=== PATIENT | female | born 2005 | race Hispanic/Latino ===

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

== ENCOUNTER 2023-04-12 08:17 | Emergency (ER) | payer OTHER, SELFPAY ==
[2023-04-12 08:30] VITALS: BP 132/80; PULSE 79; RESP 18; TEMP 36.9; O2SAT 100
--- NOTE | 2023-04-12 09:09 | ED.FEMALEGU ---
HPI - Female Genitourinary General Chief complaint: SOCIAL RESEARCH ASSISTANT Stated complaint: STD check Time Seen by Provider: 04/12/23 09:02 History of Present Illness HPI Narrative: 18-year-old female reports for evaluation for an STD check. Patient states yesterday her boyfriend was checked for STDs and has a positive for chlamydia which prompted her to come to the emergency department to be checked today. She does report abnormal vaginal discharge but denies other symptoms. She denies abdominal pain, nausea, vomiting, dysuria or hematuria, urinary frequency urgency, abnormal vaginal bleeding, labial rashes or lesions , fever. She is sexually active with 1 person. LMP approximately 3 weeks ago Related Data Allergies Allergy/AdvReac Type Severity Reaction Status Date / Time No Known Allergies Allergy Verified 04/12/23 08:34 Review of Systems Review of Systems: CONSTITUTIONAL: Denies fever, chills, or sweats. EYES: Denies visual changes, redness, or discharge. ENT: Denies rhinorrhea, congestion, sore throat, or otalgia. CARDIOVASCULAR: Denies chest pain, palpitations, or edema. RESPIRATORY: Denies cough or dyspnea. GASTROINTESTINAL: Denies abdominal pain, nausea, vomiting, or diarrhea. GENITOURINARY: See HPI SKIN: Denies rash or itching. MUSCULOSKELETAL: Denies back pain, joint pain, or myalgia. NEUROLOGIC: Denies headache, numbness, or weakness. PSYCHIATRIC: Denies anxiety or depression. [facility] Past Medical History Medical History No significant past medical history Surgical History Surgical History No significant past surgical history Family History Family History Father COVID-19 Mother , Related to kidney disease Diabetes mellitus Social History Social History Smoking status: Never smoker Tobacco type: cigarettes Second hand tobacco smoke exposure: No Alcohol intake: never Substance use: never Substance use type: does not use Living arrangements: with family Occupation/Education: student Gender identity (if verbalized by the patient): Female Exam Narrative: GENERAL: Well-appearing, well-nourished, and in no acute distress. patient resting comfortably in exam bed. She is pleasant and conversational. HEAD: Normocephalic, atraumatic. EYES: PERRLA and EOMI. ENT: Nares clear, no rhinorrhea or epistaxis. Mucous membranes moist. NECK: Supple. CHEST: Clear to auscultation. No respiratory distress. HEART: Regular rate and rhythm. No murmur heard. Normal peripheral pulses. ABDOMEN: Soft, nontender, nondistended, normal active bowel sounds. SOCIAL RESEARCH ASSISTANT: external genitalia without lesions or rashes. Vaginal vault with a moderate amount of white discharge. There is a small yellow papule to the cervix at the 11:00 location, nonfriable. Cervical os closed. No CMT, adnexal masses or tenderness. EXTREMITIES: Normal range of motion. No edema. SKIN: Warm, dry, no rash. NEURO: No focal deficits. Alert and oriented x3 Course Vital Signs Vital signs: Vital Signs Temperature 98.5 F 04/12/23 08:30 Pulse Rate 79 04/12/23 08:30 Respiratory Rate 18 04/12/23 08:30 Blood Pressure 132/80 04/12/23 08:30 Pulse Oximetry 100 04/12/23 08:30 Oxygen Delivery Room Air 04/12/23 08:30 Temperature 98.5 F 04/12/23 08:30 Pulse Rate 79 04/12/23 08:30 Respiratory Rate 18 04/12/23 08:30 Blood Pressure 132/80 04/12/23 08:30 Pulse Oximetry 100 04/12/23 08:30 Oxygen Delivery Room Air 04/12/23 08:30 MDM - Female Genitourinary MDM Narrative Medical decision making narrative: 18-year-old female reports to the emergency department for evaluation for STD checked after her boyfriend tested positive for chlamydia yesterday. See HPI for further his
[2023-04-12 10:01] LABS: Appearance Urine Cloudy (Clear); Bacteria Urine 4+ /hpf; Bilirubin Urine Negative (Negative); Blood Urine Negative (Negative); Color Urine Dark Yellow (Yellow); Glucose Urine UA Negative (Negative); Ketones Urine Trace mg/dL (Negative); Leukocyte Esterase Ur 2+ LEU/UL (Negative); Nitrate Urine Negative (Negative); Non Pathogenic Casts 0-2; Protein Urine Trace mg/dL (Negative); Specific Grav Ur 1.028 (1.001-1.035); Squamous Epithelial Cell Urine Many /hpf (Few); WBC Urine 51-100 /hpf; pH Urine 6.5 (5.0-9.0)
[2023-04-12 10:17] LABS: Add Urine Microscopic? YES
[2023-04-12 11:45] LABS: Trichomonas Vag PCR NOT DETECTED (NOT DETECTE)
[2023-04-12 12:09] LABS: Chlamydia trachomatis DETECTED (NOT DETECTE); Neisseria gonorrhoeae PCR NOT DETECTED (NOT DETECTE)
[2023-04-12] MEDS: DOXYCYCLINE HYCLATE 100 MG TABLET PO (12:21)
[2023-04-12] MEDS: LIDOCAINE HCL 1% LOCAL INJ 10 ML VIAL (12:22)
[2023-04-12] MEDS: cefTRIAXone 1 GM VIAL 0.5 GM IM (12:22)
== END 2023-04-12 12:31 | disposition home or self-care (01) ==
PROVIDERS: Emergency Provider Physician Assistant
DX: A74.9 Chlamydial infection, unspecified (principal); N89.8 Other specified noninflammatory disorders of vagina
CPT/HCPCS: 81001; 81025; 87086; 87491; 87591; 87661; 96372; 99284; A9270; J0696

== ENCOUNTER 2023-05-21 17:27 | Emergency (ER) | payer OTHER, SELFPAY ==
[2023-05-21 17:36] VITALS: BP 126/83; PULSE 109; RESP 16; TEMP 36.4; O2SAT 100
--- NOTE | 2023-05-21 17:48 | ED.URI ---
HPI - URI/Sore Throat General Chief Complaint: Upper Respiratory Infection Stated Complaint: cough,runny nose Time Seen by Provider: 05/21/23 17:48 Source: patient and RN notes reviewed Mode of arrival: ambulatory Limitations: no limitations History of Present Illness HPI Narrative: 18-year-old female presents with concern of for 5 day history of runny nose, cough, nasal congestion, headache. She denies fever, body aches, chills, sweats, shortness of breath. She denies taking anything for her symptoms. MD elicited complaint: cough and nasal congestion Related Data Home Medications Medication Instructions Recorded Confirmed norethindrone 1 mg-ethinyl 1 tablet PO DAILY 05/21/23 05/21/23 estradiol 20 mcg (21)-iron 75 mg (7) tablet (Ronald Fe 04/01 (28)) Allergies Allergy/AdvReac Type Severity Reaction Status Date / Time No Known Allergies Allergy Verified 04/12/23 08:34 Review of Systems Review of Systems: CONSTITUTIONAL: Denies malaise, chills, sweats, or fever. EYES: Denies visual changes, redness, or discharge. ENT: Reports rhinorrhea, congestion. Denies sinus pain, otalgia and sore throat. CARDIOVASCULAR: Denies chest pain, palpitations, or edema. RESPIRATORY: Reports cough. Denies dyspnea. GASTROINTESTINAL: Denies abdominal pain, nausea, vomiting, diarrhea SKIN: Denies rash or itching. MUSCULOSKELETAL: Denies myalgia. NEUROLOGIC: Reports headache. All systems reviewed & are unremarkable except as noted in HPI and below PMFSH Past Medical History Medical History No significant past medical history Surgical History Surgical History No significant past surgical history Family History Family History Father COVID-19 Mother , Related to kidney disease Diabetes mellitus Social History Social History Smoking status: Never smoker Tobacco type: cigarettes Second hand tobacco smoke exposure: No Alcohol intake: never Substance use: never Substance use type: does not use Living arrangements: with family Occupation/Education: student Gender identity (if verbalized by the patient): Female Comments At time of signature, agree with nursing past medical, surgical, social and family history. There is no relevant family history pertinent to the presenting complaint Exam Narrative: GENERAL: Well-appearing, well-nourished, and in no acute distress. HEAD: Normocephalic EYES: PERRLA, conjunctivae clear ENT: Nares clear, turbinates edematous and erythematous, clear discharge. Mucous membranes moist. TM pearly mobley with sharp light reflex bilaterally; no tragal tenderness. Oropharynx not erythematous without lesions. Tonsils not enlarged and without exudate, no drooling, no hoarseness, no trismus, uvula midline. NECK: Supple. No lymphadenopathy CHEST: Clear to auscultation, breath sounds equal. No wheezing, rhonchi, rales, or stridor. No respiratory distress, speaks in full sentences. HEART: Regular rate and rhythm. No murmur heard. SKIN: Warm, dry, no rash. NEURO: Alert and oriented x3. PSYCH: Normal mood and affect Course Course Emergency Course: Patient is aware of diagnosis, understands and agrees to treatment plan. Anticipatory guidance given. Patient agrees to follow-up as directed and is aware of reasons to seek care at the emergency department. Portions of this record may have been created with voice recognition software Level of Care: Express Care Visit Vital Signs Vital signs: Vital Signs Temperature 97.6 F 05/21/23 17:36 Pulse Rate 109 H 05/21/23 17:36 Respiratory Rate 16 05/21/23 17:36 Blood Pressure 126/83 05/21/23 17:36 Pulse Oximetry 100 05/21/23 17:36 Oxygen Delivery Room Air 05/21/23 17:36 Tempera
== END 2023-05-21 18:11 | disposition home or self-care (01) ==
PROVIDERS: Emergency Provider Nurse Practitioner; PCP Physician Assistant
DX: J06.9 Acute upper respiratory infection, unspecified (principal); Z20.822 Contact with and (suspected) exposure to COVID-19
CPT/HCPCS: 87426; 87804; 99213; G0463